=== PATIENT | male | born 1955 | race African-American/Black ===

== ENCOUNTER 2016-06-08 18:08 | Emergency (ER) | payer OTHER ==
[~2016-06-08] VITALS: Ht 175.3 cm; Wt 89.0 kg
[~2016-06-08 18:08] MED LIST: BUPRENORPHINE HC8 MG SL; CLONIDINE HCL0.3 MG PO; FLOMAX0.4 MG PO; LO-DOSE ASPIRIN81 M2 PO; METHADONE HCL40 MG PO; NITROSTAT0.4 MG SL; NORVASC5 MG PO; SERTRALINE HCL100 MG PO; WELLBUTRIN75 MG PO; XANAX0.5 MG PO
[2016-06-08 20:05] LABS: BASOPHIL COUNT 0.1 K/uL (0-0.1); EOSINOPHIL (%) 0.9 % (0-5); EOSINOPHIL COUNT 0.1 K/uL (0-0.3); HEMATOCRIT 39.3 % (38.0-50.0); IMMATURE GRANULOCYTE (%) 0.1 % (0.0-0.7); IMMATURE GRANULOCYTE COUNT 0.1 K/uL; LYMPHOCYTE COUNT 2.2 K/uL (1.0-2.8); MCH 30.5 PG (29.0-34.0); MCHC 34.4 G/DL (30.0-36.0); MCV 88.7 FL (86-99); MEAN PLAT.VOLUME 10.6 uM^3 (9.0-12.4); MONOCYTE (%) 9.1 % (3-12); MONOCYTE COUNT 0.6 K/uL (0-0.8); NEUTROPHIL COUNT 3.8 K/uL (1.8-6.4); PLATELET COUNT 254 K/uL (156-360); RBC DIS.WIDTH-CV 14.1 % (11.8-14.6); RBC DIS.WIDTH-SD 44.8 % (39-53); RED BLOOD COUNT 4.43 M/uL (4.00-5.50); WHITE BLOOD COUNT 6.7 K/uL (4.1-10.2)
[2016-06-08 20:17] LABS: D-DIMER ELISA 0.19 mg/L FEU (< 0.57)
[2016-06-08 20:20] LABS: CHLORIDE 106 mEq/L (99-109); POTASSIUM 3.9 mEq/L (3.7-5.4); SODIUM 140 mEq/L (136-147)
[2016-06-08 20:22] LABS: GLUCOSE 98 mg/dL (70-99)
[2016-06-08 20:23] LABS: ANION GAP 13 MEQ/L (2-14)
[2016-06-08 20:24] LABS: TOTAL BILIRUBIN 0.4 mg/dL (0.0-1.0)
[2016-06-08 20:25] LABS: ALKALINE PHOSPHATASE 67 IU/L (3-129)
[2016-06-08 20:26] LABS: GFR ESTIMATE (CALCULATED) > 59 mL/min/
[2016-06-08 20:27] LABS: UREA NITROGEN (BUN) 11 mg/dL (9-23)
[2016-06-08 20:29] LABS: LIPASE 16 U/L (1.0-51.0)
[2016-06-08 20:49] LABS: TROP-I INTERPRETATION NEGATIVE; TROPONIN-I < 0.01 ng/mL (0.0-0.30)
[2016-06-08] MEDS ORDERED: PRILOSEC OTC20 MG PO (22:15)
[2016-06-08] MEDS ORDERED: PERCOCET 5/31 TABLET PO (22:15)
[2016-06-08 22:35] VITALS: BP 124/76
== END 2016-06-08 23:05 | disposition home or self-care (01) ==
LOC: EME 18:08
PROVIDERS: Emergency Medicine
DX: K80.20 Calculus of gallbladder without cholecystitis without obstruction (principal); R07.9 Chest pain, unspecified; G89.29 Other chronic pain; Z79.891 Long term (current) use of opiate analgesic; F17.200 Nicotine dependence, unspecified, uncomplicated; Z71.6 Tobacco abuse counseling
CPT/HCPCS: 71010; 76705; 80053; 83690; 84484; 85025; 85379; 93005; 99281; 99285; J1170; J2405

== ENCOUNTER 2016-06-16 01:29 | Inpatient (IN) | payer OTHER ==
[~2016-06-16] VITALS: Ht 175.3 cm; Wt 89.0 kg
[~2016-06-16 01:29] MED LIST changes: +PERCOCET 5/31 TABLET PO; +PRILOSEC OTC20 MG PO
[2016-06-16 02:42] LABS: CHLORIDE 108 mEq/L (99-109); SODIUM 138 mEq/L (136-147)
[2016-06-16 02:44] LABS: GLUCOSE 83 mg/dL (70-99)
[2016-06-16 02:45] LABS: ANION GAP 15 MEQ/L (2-14)
[2016-06-16 02:47] LABS: SERUM ETHYL ALCOHOL 136 mg/dL
[2016-06-16 02:48] LABS: GFR ESTIMATE (CALCULATED) > 59 mL/min/
[2016-06-16 02:49] LABS: UREA NITROGEN (BUN) 13 mg/dL (9-23)
[2016-06-16 03:15] LABS: HEMATOCRIT 37.1 % (38.0-50.0); MCH 30.6 PG (29.0-34.0); MCHC 34.2 G/DL (30.0-36.0); MCV 89.4 FL (86-99); MEAN PLAT.VOLUME 10.9 uM^3 (9.0-12.4); PLATELET COUNT 213 K/uL (156-360); RBC DIS.WIDTH-CV 13.6 % (11.8-14.6); RBC DIS.WIDTH-SD 43.6 % (39-53); RED BLOOD COUNT 4.15 M/uL (4.00-5.50); WHITE BLOOD COUNT 8.2 K/uL (4.1-10.2)
[2016-06-16 05:13] VITALS: BP 132/85
[2016-06-16 07:56] VITALS: BP 139/78
[2016-06-16 15:43] VITALS: BP 103/56
[2016-06-17 07:58] VITALS: BP 124/73
[2016-06-17 15:36] VITALS: BP 120/61
[2016-06-18 07:36] VITALS: BP 115/68
[2016-06-18 16:01] VITALS: BP 114/69
[2016-06-18 19:57] VITALS: BP 112/62
[2016-06-19 07:44] VITALS: BP 113/60
[2016-06-19 13:07] LABS: ADD MIUA? NO; BILIRUBIN NEGATIVE; BLOOD NEGATIVE; COLOR YELLOW ((YELLOW)); GLUCOSE (STRIP) NEGATIVE; KETONES NEGATIVE; LEUKOCYTES NEGATIVE; NITRITE NEGATIVE; PH, URINE 6.5 (5-8); PROTEIN (STRIP) NEGATIVE; SPECIFIC GRAVITY 1.007 (1.000-1.030)
[2016-06-19 13:11] LABS: EOSINOPHIL (%) 11.2 % (0-5); EOSINOPHIL COUNT 0.6 K/uL (0-0.3); IMMATURE GRANULOCYTE COUNT 0.5 K/uL; LYMPHOCYTE COUNT 1.8 K/uL (1.0-2.8); MCH 30.7 PG (29.0-34.0); MCHC 33.7 G/DL (30.0-36.0); MCV 91.1 FL (86-99); MONOCYTE (%) 8.1 % (3-12); MONOCYTE COUNT 0.4 K/uL (0-0.8); NEUTROPHIL (%) 44.3 % (45-76); NEUTROPHIL COUNT 2.3 K/uL (1.8-6.4); RBC DIS.WIDTH-CV 13.4 % (11.8-14.6); RBC DIS.WIDTH-SD 43.9 % (39-53)
[2016-06-19 13:14] LABS: WHITE BLOOD COUNT 5.2 K/uL (4.1-10.2)
[2016-06-19 13:40] LABS: PLAT.SUFFICIENCY ADEQUATE; PLATELET COUNT UNABLE TO REPORT K/uL (156-360); USER ID SDF
[2016-06-19 13:48] LABS: ANION GAP 13 MEQ/L (2-14); CHLORIDE 102 MEQ/L (99-109); POTASSIUM 5.5 MEQ/L (3.7-5.4); SAMPLE HEMOLYSIS CHECK 1; SAMPLE ICTERIC CHECK 0; SAMPLE LIPEMIA CHECK 0; SODIUM 135 MEQ/L (136-147); TOTAL BILIRUBIN 1.1 MG/DL (0.0-1.0)
[2016-06-19 13:54] LABS: ALKALINE PHOSPHATASE 337 IU/L (3-129); GFR ESTIMATE (CALCULATED) > 59 mL/min/; GLUCOSE 96 mg/dL (70-99); LIPASE 30 U/L (1.0-51.0); UREA NITROGEN (BUN) 15 mg/dL (9-23)
[2016-06-19 16:09] VITALS: BP 120/68
[2016-06-20 07:56] VITALS: BP 145/83
[2016-06-20 10:08] LABS: ALKALINE PHOSPHATASE 392 IU/L (3-129); ANION GAP 7 MEQ/L (2-14); CHLORIDE 102 MEQ/L (99-109); GFR ESTIMATE (CALCULATED) > 59 mL/min/; GLUCOSE 134 mg/dL (70-99); SAMPLE HEMOLYSIS CHECK 0; SAMPLE ICTERIC CHECK 0; SAMPLE LIPEMIA CHECK 0; SODIUM 133 MEQ/L (136-147); UREA NITROGEN (BUN) 13 mg/dL (9-23)
[2016-06-20 10:12] LABS: POTASSIUM 4.2 MEQ/L (3.7-5.4); TOTAL BILIRUBIN 1.6 MG/DL (0.0-1.0)
[2016-06-20 15:39] VITALS: BP 134/72
[2016-06-20 17:50] LABS: AMPHETAMINES QUANT VALUE 0 NG/ML; BARBITUATES QUANT VALUE 0 NG/ML; BENZODIAZEPINES QUANT VALUE 0 NG/ML; BENZODIAZEPINES, URINE SCREEN Negative (200 ng/mL); OPIATES QUANTITATIVE VALUE 0 NG/ML; PHENCYCLIDINE QUANT VALUE 0 NG/ML
[2016-06-21 08:06] VITALS: BP 135/68
[2016-06-21 12:59] LABS: HEMATOCRIT 39.7 % (38.0-50.0); MCHC 33.5 G/DL (30.0-36.0); MCV 89.4 FL (86-99); RBC DIS.WIDTH-CV 13.4 % (11.8-14.6); RBC DIS.WIDTH-SD 43.6 % (39-53); RED BLOOD COUNT 4.44 M/uL (4.00-5.50); WHITE BLOOD COUNT 4.9 K/uL (4.1-10.2)
[2016-06-21 13:04] LABS: MEAN PLAT.VOLUME 11.7 uM^3 (9.0-12.4); PLATELET COUNT 233 K/uL (156-360)
[2016-06-21 13:31] LABS: ALKALINE PHOSPHATASE 477 IU/L (3-129); ANION GAP 8 MEQ/L (2-14); CHLORIDE 101 MEQ/L (99-109); GFR ESTIMATE (CALCULATED) > 59 mL/min/; POTASSIUM 4.6 MEQ/L (3.7-5.4); SAMPLE HEMOLYSIS CHECK 0; SAMPLE ICTERIC CHECK 1; SAMPLE LIPEMIA CHECK 0; SODIUM 136 MEQ/L (136-147); UREA NITROGEN (BUN) 11 mg/dL (9-23)
[2016-06-21 13:34] LABS: GLUCOSE 94 mg/dL (70-99)
[2016-06-22] MEDS ORDERED: OMEPRAZOLE20 MG PO (22:25)
[2016-06-22] MEDS ORDERED: WELLBUTRIN100 MG PO (22:26)
== END 2016-06-21 13:29 | disposition left against medical advice (07) | DRG 881 ==
LOC: EME 01:29 → EDOF 03:55 → 1WEST 03:55
PROVIDERS: Emergency Medicine; Internal Medicine; Surgery
DX: F32.9 Major depressive disorder, single episode, unspecified (principal); K81.0 Acute cholecystitis; R45.851 Suicidal ideations; F10.129 Alcohol abuse with intoxication, unspecified; F41.9 Anxiety disorder, unspecified; R45.850 Homicidal ideations; F19.10 Other psychoactive substance abuse, uncomplicated
CPT/HCPCS: 74177; 80048; 80053; 81003; 83690; 85025; 85027; 90839; 93005; 97150 GO; 97167 GO; 99281; 99284; G0480; J7030; J7042; Q0177

== ENCOUNTER 2016-06-22 19:03 | Inpatient (IN) | payer OTHER ==
[~2016-06-22] VITALS: Ht 175.3 cm; Wt 90.5 kg
[2016-06-22 19:51] LABS: ADD MIUA? YES; BILIRUBIN SMALL; BLOOD NEGATIVE; GLUCOSE (STRIP) NEGATIVE; KETONES NEGATIVE; LEUKOCYTES TRACE; NITRITE NEGATIVE; PROTEIN (STRIP) NEGATIVE; SPECIFIC GRAVITY 1.027 (1.000-1.030)
[2016-06-22 19:52] LABS: COLOR AMBER ((YELLOW))
[2016-06-22 20:08] LABS: HEMATOCRIT 38.5 % (38.0-50.0); MCH 30.3 PG (29.0-34.0); MCHC 34.3 G/DL (30.0-36.0); MCV 88.5 FL (86-99); RBC DIS.WIDTH-CV 13.5 % (11.8-14.6); RED BLOOD COUNT 4.35 M/uL (4.00-5.50)
[2016-06-22 20:15] LABS: CHLORIDE 108 mEq/L (99-109); POTASSIUM 4.1 mEq/L (3.7-5.4); SODIUM 142 mEq/L (136-147)
[2016-06-22 20:17] LABS: GLUCOSE 93 mg/dL (70-99)
[2016-06-22 20:19] LABS: ANION GAP 13 MEQ/L (2-14)
[2016-06-22 20:21] LABS: ALKALINE PHOSPHATASE 432 IU/L (3-129); GFR ESTIMATE (CALCULATED) > 59 mL/min/
[2016-06-22 20:22] LABS: UREA NITROGEN (BUN) 18 mg/dL (9-23); WHITE BLOOD COUNT 6.4 K/uL (4.1-10.2)
[2016-06-22 20:39] LABS: EPITHELIAL CELLS NONE SEEN; RED BLOOD CELLS 0-5 /HPF (0-5); WHITE BLOOD CELLS 0-5 /HPF (0-5)
[2016-06-22 20:40] LABS: BACTERIA RARE; CASTS NONE SEEN /LPF; CRYSTALS NONE SEEN; MUCUS RARE; UCUL ADDED? NO
[2016-06-22 20:53] LABS: HEMATOLOGY COMMENT 1 SMEAR COMPATIBLE
[2016-06-22 21:01] LABS: PLATELET COUNT 148 K/uL (156-360)
[2016-06-22] MEDS ORDERED: OMEPRAZOLE20 MG PO (22:25)
[2016-06-22] MEDS ORDERED: WELLBUTRIN100 MG PO (22:26)
[2016-06-23 00:15] VITALS: BP 117/72
[2016-06-23 05:27] LABS: AMPHETAMINES QUANT VALUE 0 NG/ML; BARBITUATES QUANT VALUE 0 NG/ML; BENZODIAZEPINES QUANT VALUE 0 NG/ML; BENZODIAZEPINES, URINE SCREEN Negative (200 ng/mL); OPIATES QUANTITATIVE VALUE 0 NG/ML; PHENCYCLIDINE QUANT VALUE 0 NG/ML
[2016-06-23 06:15] LABS: HEMATOCRIT 36.2 % (38.0-50.0); MCH 30.1 PG (29.0-34.0); MCHC 33.1 G/DL (30.0-36.0); MCV 90.7 FL (86-99); RBC DIS.WIDTH-CV 13.7 % (11.8-14.6); RBC DIS.WIDTH-SD 45.5 % (39-53); RED BLOOD COUNT 3.99 M/uL (4.00-5.50); WHITE BLOOD COUNT 5.3 K/uL (4.1-10.2)
[2016-06-23 06:21] VITALS: BP 170/79
[2016-06-23 06:38] LABS: MEAN PLAT.VOLUME 11.5 uM^3 (9.0-12.4)
[2016-06-23 06:45] LABS: PLATELET COUNT 219 K/uL (156-360)
[2016-06-23 07:11] LABS: ALKALINE PHOSPHATASE 388 IU/L (3-129); ANION GAP 6 MEQ/L (2-14); CHLORIDE 108 MEQ/L (99-109); GFR ESTIMATE (CALCULATED) > 59 mL/min/; GLUCOSE 97 mg/dL (70-99); SAMPLE HEMOLYSIS CHECK 0; SAMPLE ICTERIC CHECK 0; SAMPLE LIPEMIA CHECK 0; SODIUM 139 MEQ/L (136-147); UREA NITROGEN (BUN) 15 mg/dL (9-23)
[2016-06-23 07:19] LABS: TOTAL BILIRUBIN 3.1 MG/DL (0.0-1.0)
[2016-06-23 08:38] VITALS: BP 142/84
[2016-06-23 20:05] VITALS: BP 174/92
[2016-06-23 23:46] VITALS: BP 188/105
[2016-06-24 03:46] VITALS: BP 181/96
[2016-06-24 06:37] LABS: HEMATOCRIT 38.6 % (38.0-50.0); MCH 31.3 PG (29.0-34.0); MCHC 35.2 G/DL (30.0-36.0); MCV 88.9 FL (86-99); MEAN PLAT.VOLUME 12.4 uM^3 (9.0-12.4); PLATELET COUNT 242 K/uL (156-360); RBC DIS.WIDTH-CV 13.3 % (11.8-14.6); RBC DIS.WIDTH-SD 43.2 % (39-53); RED BLOOD COUNT 4.34 M/uL (4.00-5.50)
[2016-06-24 06:38] LABS: WHITE BLOOD COUNT 7.4 K/uL (4.1-10.2)
[2016-06-24 07:13] LABS: ALKALINE PHOSPHATASE 406 IU/L (3-129); ANION GAP 7 MEQ/L (2-14); CHLORIDE 102 MEQ/L (99-109); GFR ESTIMATE (CALCULATED) > 59 mL/min/; LIPASE 2008 U/L (1.0-51.0); POTASSIUM 3.9 MEQ/L (3.7-5.4); SAMPLE HEMOLYSIS CHECK 0; SAMPLE ICTERIC CHECK 0; SAMPLE LIPEMIA CHECK 0; UREA NITROGEN (BUN) 10 mg/dL (9-23)
[2016-06-24 07:17] LABS: GLUCOSE 172 mg/dL (70-99); SODIUM 132 MEQ/L (136-147); TOTAL BILIRUBIN 1.9 MG/DL (0.0-1.0)
[2016-06-24 08:09] VITALS: BP 164/98
[2016-06-24 10:25] VITALS: BP 159/92
[2016-06-24 17:00] VITALS: BP 132/78
[2016-06-24 20:00] VITALS: BP 146/61
[2016-06-25 00:09] VITALS: BP 157/86
[2016-06-25 07:27] LABS: HEMATOCRIT 40.8 % (38.0-50.0); MCH 30.3 PG (29.0-34.0); MCHC 33.8 G/DL (30.0-36.0); MCV 89.7 FL (86-99); RBC DIS.WIDTH-CV 13.5 % (11.8-14.6); RBC DIS.WIDTH-SD 44.3 % (39-53); RED BLOOD COUNT 4.55 M/uL (4.00-5.50)
[2016-06-25 07:33] VITALS: BP 141/86
[2016-06-25 07:44] LABS: WHITE BLOOD COUNT 10.6 K/uL (4.1-10.2)
[2016-06-25 07:55] LABS: ALKALINE PHOSPHATASE 343 IU/L (3-129); ANION GAP 9 MEQ/L (2-14); CHLORIDE 103 MEQ/L (99-109); GFR ESTIMATE (CALCULATED) > 59 mL/min/; GLUCOSE 105 mg/dL (70-99); LIPASE 371 U/L (1.0-51.0); POTASSIUM 4.2 MEQ/L (3.7-5.4); SAMPLE HEMOLYSIS CHECK 0; SAMPLE ICTERIC CHECK 0; SAMPLE LIPEMIA CHECK 0; SODIUM 134 MEQ/L (136-147); TOTAL BILIRUBIN 1.3 MG/DL (0.0-1.0); UREA NITROGEN (BUN) 8 mg/dL (9-23)
[2016-06-25 08:13] LABS: PLATELET COUNT UNABLE TO REPORT K/uL (156-360)
[2016-06-25 17:22] VITALS: BP 134/80
[2016-06-25 20:08] VITALS: BP 125/82
[2016-06-26 00:31] VITALS: BP 120/74
[2016-06-26 07:50] VITALS: BP 148/86
[2016-06-26 11:58] LABS: HEMATOCRIT 38.5 % (38.0-50.0); MCH 29.5 PG (29.0-34.0); MCHC 33.5 G/DL (30.0-36.0); MCV 87.9 FL (86-99); RBC DIS.WIDTH-CV 13.2 % (11.8-14.6); RBC DIS.WIDTH-SD 42.5 % (39-53); RED BLOOD COUNT 4.38 M/uL (4.00-5.50); WHITE BLOOD COUNT 8.2 K/uL (4.1-10.2)
[2016-06-26 12:17] LABS: MEAN PLAT.VOLUME 11.9 uM^3 (9.0-12.4); PLATELET COUNT 251 K/uL (156-360)
[2016-06-26 14:54] LABS: ANION GAP 8 MEQ/L (2-14); CHLORIDE 102 MEQ/L (99-109); SAMPLE HEMOLYSIS CHECK 0; SAMPLE ICTERIC CHECK 1; SAMPLE LIPEMIA CHECK 0; SODIUM 134 MEQ/L (136-147)
[2016-06-26 14:56] LABS: TOTAL BILIRUBIN 3.8 MG/DL (0.0-1.0)
[2016-06-26 14:59] LABS: ALKALINE PHOSPHATASE 420 IU/L (3-129); GFR ESTIMATE (CALCULATED) > 59 mL/min/; GLUCOSE 85 mg/dL (70-99); LIPASE 76 U/L (1.0-51.0); UREA NITROGEN (BUN) 7 mg/dL (9-23)
[2016-06-26 15:58] VITALS: BP 132/76
[2016-06-26 23:25] VITALS: BP 131/76
[2016-06-27 05:57] LABS: HEMATOCRIT 38.3 % (38.0-50.0); MCH 31.2 PG (29.0-34.0); MCHC 35.2 G/DL (30.0-36.0); MCV 88.5 FL (86-99); MEAN PLAT.VOLUME 12.4 uM^3 (9.0-12.4); PLATELET COUNT 231 K/uL (156-360); RBC DIS.WIDTH-CV 13.2 % (11.8-14.6); RBC DIS.WIDTH-SD 42.7 % (39-53); RED BLOOD COUNT 4.33 M/uL (4.00-5.50); WHITE BLOOD COUNT 6.3 K/uL (4.1-10.2)
[2016-06-27 06:26] LABS: ALKALINE PHOSPHATASE 438 IU/L (3-129); ANION GAP 12 MEQ/L (2-14); CHLORIDE 101 MEQ/L (99-109); GFR ESTIMATE (CALCULATED) > 59 mL/min/; GLUCOSE 92 mg/dL (70-99); LIPASE 44 U/L (1.0-51.0); SAMPLE HEMOLYSIS CHECK 0; SAMPLE ICTERIC CHECK 1; SAMPLE LIPEMIA CHECK 0; SODIUM 137 MEQ/L (136-147); TOTAL BILIRUBIN 4.6 MG/DL (0.0-1.0); UREA NITROGEN (BUN) 7 mg/dL (9-23)
[2016-06-27 07:48] VITALS: BP 145/86
[2016-06-27 11:30] VITALS: BP 162/84
[2016-06-28 00:07] VITALS: BP 161/87
[2016-06-28 05:51] LABS: HEMATOCRIT 39.6 % (38.0-50.0); MCH 29.6 PG (29.0-34.0); MCHC 33.8 G/DL (30.0-36.0); MCV 87.6 FL (86-99); MEAN PLAT.VOLUME 12.4 uM^3 (9.0-12.4); PLATELET COUNT 299 K/uL (156-360); RBC DIS.WIDTH-CV 13.2 % (11.8-14.6); RED BLOOD COUNT 4.52 M/uL (4.00-5.50); WHITE BLOOD COUNT 8.4 K/uL (4.1-10.2)
[2016-06-28 06:24] LABS: ALKALINE PHOSPHATASE 430 IU/L (3-129); ANION GAP 7 MEQ/L (2-14); CHLORIDE 100 MEQ/L (99-109); GFR ESTIMATE (CALCULATED) > 59 mL/min/; LIPASE 28 U/L (1.0-51.0); SAMPLE HEMOLYSIS CHECK 0; SAMPLE ICTERIC CHECK 0; SAMPLE LIPEMIA CHECK 0; SODIUM 132 MEQ/L (136-147); UREA NITROGEN (BUN) 8 mg/dL (9-23)
[2016-06-28 06:26] LABS: GLUCOSE 164 mg/dL (70-99); POTASSIUM 4.9 MEQ/L (3.7-5.4); TOTAL BILIRUBIN 2.1 MG/DL (0.0-1.0)
[2016-06-28 07:27] VITALS: BP 150/80
[2016-06-28 16:04] VITALS: BP 137/78
[2016-06-28 20:40] VITALS: BP 135/74
[2016-06-28 23:47] VITALS: BP 169/85
[2016-06-29 05:14] VITALS: BP 161/87
[2016-06-29 07:45] LABS: HEMATOCRIT 36.3 % (38.0-50.0); MCH 30.7 PG (29.0-34.0); MCHC 34.4 G/DL (30.0-36.0); MCV 89.2 FL (86-99); MEAN PLAT.VOLUME 12.4 uM^3 (9.0-12.4); PLATELET COUNT 303 K/uL (156-360); RBC DIS.WIDTH-CV 13.5 % (11.8-14.6); RBC DIS.WIDTH-SD 43.5 % (39-53); RED BLOOD COUNT 4.07 M/uL (4.00-5.50); WHITE BLOOD COUNT 11.1 K/uL (4.1-10.2)
[2016-06-29 07:59] LABS: ALKALINE PHOSPHATASE 324 IU/L (3-129); ANION GAP 8 MEQ/L (2-14); CHLORIDE 101 MEQ/L (99-109); GFR ESTIMATE (CALCULATED) > 59 mL/min/; GLUCOSE 127 mg/dL (70-99); POTASSIUM 4.2 MEQ/L (3.7-5.4); SAMPLE HEMOLYSIS CHECK 0; SAMPLE ICTERIC CHECK 0; SAMPLE LIPEMIA CHECK 0; SODIUM 134 MEQ/L (136-147); UREA NITROGEN (BUN) 11 mg/dL (9-23)
[2016-06-29 08:08] LABS: TOTAL BILIRUBIN 1.4 MG/DL (0.0-1.0)
[2016-06-29 08:47] VITALS: BP 148/75
[2016-06-29 15:56] VITALS: BP 136/80
[2016-06-30 00:31] VITALS: BP 156/98
[2016-06-30 06:09] LABS: HEMATOCRIT 36.3 % (38.0-50.0); MCH 31.1 PG (29.0-34.0); MCHC 34.4 G/DL (30.0-36.0); MCV 90.3 FL (86-99); MEAN PLAT.VOLUME 12.2 uM^3 (9.0-12.4); PLATELET COUNT 301 K/uL (156-360); RBC DIS.WIDTH-CV 13.6 % (11.8-14.6); RBC DIS.WIDTH-SD 44.6 % (39-53); RED BLOOD COUNT 4.02 M/uL (4.00-5.50); WHITE BLOOD COUNT 8.9 K/uL (4.1-10.2)
[2016-06-30 06:34] LABS: ALKALINE PHOSPHATASE 279 IU/L (3-129); ANION GAP 6 MEQ/L (2-14); CHLORIDE 102 MEQ/L (99-109); GFR ESTIMATE (CALCULATED) > 59 mL/min/; GLUCOSE 99 mg/dL (70-99); POTASSIUM 4.2 MEQ/L (3.7-5.4); SAMPLE HEMOLYSIS CHECK 0; SAMPLE ICTERIC CHECK 0; SAMPLE LIPEMIA CHECK 0; SODIUM 137 MEQ/L (136-147); TOTAL BILIRUBIN 1.2 MG/DL (0.0-1.0); UREA NITROGEN (BUN) 9 mg/dL (9-23)
[2016-06-30 07:23] VITALS: BP 143/71
[2016-06-30 20:03] VITALS: BP 145/81
[2016-07-01 02:32] VITALS: BP 135/73
[2016-07-01 06:22] LABS: HEMATOCRIT 40.5 % (38.0-50.0); MCH 30.6 PG (29.0-34.0); MCHC 34.1 G/DL (30.0-36.0); MCV 89.8 FL (86-99); MEAN PLAT.VOLUME 12.2 uM^3 (9.0-12.4); PLATELET COUNT 294 K/uL (156-360); RBC DIS.WIDTH-CV 13.5 % (11.8-14.6); RBC DIS.WIDTH-SD 44.5 % (39-53); RED BLOOD COUNT 4.51 M/uL (4.00-5.50)
[2016-07-01 06:23] LABS: WHITE BLOOD COUNT 12.5 K/uL (4.1-10.2)
[2016-07-01 06:26] LABS: ALKALINE PHOSPHATASE 287 IU/L (3-129); ANION GAP 12 MEQ/L (2-14); CHLORIDE 99 MEQ/L (99-109); GFR ESTIMATE (CALCULATED) > 59 mL/min/; SAMPLE HEMOLYSIS CHECK 0; SAMPLE ICTERIC CHECK 0; SAMPLE LIPEMIA CHECK 0; SODIUM 135 MEQ/L (136-147); TOTAL BILIRUBIN 1.3 MG/DL (0.0-1.0); UREA NITROGEN (BUN) 9 mg/dL (9-23)
[2016-07-01 06:27] LABS: GLUCOSE 153 mg/dL (70-99); POTASSIUM 5.1 MEQ/L (3.7-5.4)
[2016-07-01 08:22] VITALS: BP 116/64
[2016-07-01 16:09] VITALS: BP 135/76
[2016-07-02] VITALS: BP 140/84
[2016-07-02 05:25] LABS: HEMATOCRIT 36.6 % (38.0-50.0); MCH 30.6 PG (29.0-34.0); MCHC 34.2 G/DL (30.0-36.0); MCV 89.5 FL (86-99); MEAN PLAT.VOLUME 12.1 uM^3 (9.0-12.4); PLATELET COUNT 292 K/uL (156-360); RBC DIS.WIDTH-CV 13.5 % (11.8-14.6); RED BLOOD COUNT 4.09 M/uL (4.00-5.50); WHITE BLOOD COUNT 13.1 K/uL (4.1-10.2)
[2016-07-02 06:12] LABS: ALKALINE PHOSPHATASE 213 IU/L (3-129); ANION GAP 9 MEQ/L (2-14); CHLORIDE 100 MEQ/L (99-109); GFR ESTIMATE (CALCULATED) > 59 mL/min/; GLUCOSE 86 mg/dL (70-99); POTASSIUM 4.6 MEQ/L (3.7-5.4); SAMPLE HEMOLYSIS CHECK 0; SAMPLE ICTERIC CHECK 0; SAMPLE LIPEMIA CHECK 0; SODIUM 133 MEQ/L (136-147); TOTAL BILIRUBIN 1.2 MG/DL (0.0-1.0); UREA NITROGEN (BUN) 12 mg/dL (9-23)
[2016-07-02 08:15] VITALS: BP 134/80
[2016-07-02 13:09] VITALS: BP 125/70
[2016-07-02 17:08] VITALS: BP 119/63
[2016-07-02 23:30] VITALS: BP 118/71
[2016-07-03 05:37] LABS: HEMATOCRIT 39.7 % (38.0-50.0); MCH 30.9 PG (29.0-34.0); MCHC 34.3 G/DL (30.0-36.0); MCV 90.2 FL (86-99); MEAN PLAT.VOLUME 12.1 uM^3 (9.0-12.4); PLATELET COUNT 309 K/uL (156-360); RBC DIS.WIDTH-CV 13.6 % (11.8-14.6); RBC DIS.WIDTH-SD 44.6 % (39-53); WHITE BLOOD COUNT 11.3 K/uL (4.1-10.2)
[2016-07-03 06:04] LABS: ALKALINE PHOSPHATASE 225 IU/L (3-129); ANION GAP 7 MEQ/L (2-14); CHLORIDE 99 MEQ/L (99-109); GFR ESTIMATE (CALCULATED) > 59 mL/min/; GLUCOSE 107 mg/dL (70-99); POTASSIUM 4.8 MEQ/L (3.7-5.4); SAMPLE HEMOLYSIS CHECK 0; SAMPLE ICTERIC CHECK 0; SAMPLE LIPEMIA CHECK 0; SODIUM 134 MEQ/L (136-147); TOTAL BILIRUBIN 1.2 MG/DL (0.0-1.0); UREA NITROGEN (BUN) 10 mg/dL (9-23)
[2016-07-03 07:33] VITALS: BP 123/72
[2016-07-03 16:00] VITALS: BP 121/65
[2016-07-04 01:30] VITALS: BP 111/66
[2016-07-04 07:25] VITALS: BP 113/62
[2016-07-04 16:04] VITALS: BP 99/57
[2016-07-04 23:55] VITALS: BP 140/68
[2016-07-05 06:12] LABS: HEMATOCRIT 35.4 % (38.0-50.0); MCH 29.7 PG (29.0-34.0); MCHC 33.1 G/DL (30.0-36.0); MCV 89.8 FL (86-99); MEAN PLAT.VOLUME 11.7 uM^3 (9.0-12.4); PLATELET COUNT 363 K/uL (156-360); RBC DIS.WIDTH-CV 13.3 % (11.8-14.6); RBC DIS.WIDTH-SD 43.8 % (39-53); RED BLOOD COUNT 3.94 M/uL (4.00-5.50); WHITE BLOOD COUNT 8.7 K/uL (4.1-10.2)
[2016-07-05 06:44] LABS: ALKALINE PHOSPHATASE 194 IU/L (3-129); ANION GAP 6 MEQ/L (2-14); CHLORIDE 98 MEQ/L (99-109); GFR ESTIMATE (CALCULATED) > 59 mL/min/; GLUCOSE 92 mg/dL (70-99); POTASSIUM 4.8 MEQ/L (3.7-5.4); SAMPLE HEMOLYSIS CHECK 0; SAMPLE ICTERIC CHECK 0; SAMPLE LIPEMIA CHECK 0; SODIUM 131 MEQ/L (136-147); UREA NITROGEN (BUN) 16 mg/dL (9-23)
[2016-07-05 06:48] LABS: TOTAL BILIRUBIN 0.9 MG/DL (0.0-1.0)
[2016-07-05 07:45] VITALS: BP 106/56
[2016-07-05 10:18] VITALS: BP 104/64
[2016-07-05 11:40] VITALS: BP 126/67
[2016-07-05 11:48] VITALS: BP 94/55
[2016-07-05 16:30] VITALS: BP 105/63
[2016-07-05 20:00] VITALS: BP 93/63
[2016-07-06] VITALS: BP 104/55
[2016-07-06 04:00] VITALS: BP 93/57
[2016-07-06 07:47] VITALS: BP 101/57
[2016-07-06 17:22] VITALS: BP 111/60
[2016-07-07 00:16] VITALS: BP 125/78
[2016-07-07 08:20] VITALS: BP 101/63
[2016-07-07] MEDS ORDERED: TAMSULOSIN HCL0.4 MG PO (11:50)
[2016-07-07] MEDS ORDERED: METOCLOPRAMIDE10 MG PO (11:50)
[2016-07-07] MEDS ORDERED: CIPROFLOXACIN500 M1 PO (11:50)
[2016-07-07] MEDS ORDERED: WELLBUTRIN75 MG PO (13:45)
[2016-07-07] MEDS ORDERED: OXYCODONE HCL10 MG PO (15:42)
== END 2016-07-07 16:25 | DRG 414 ==
LOC: EME 19:03 → EDOF 22:06 → 3EAST 22:06
PROVIDERS: Surgery
DX: K80.00 Calculus of gallbladder with acute cholecystitis without obstruction (principal); K75.0 Abscess of liver; K46.9 Unspecified abdominal hernia without obstruction or gangrene; B19.20 Unspecified viral hepatitis C without hepatic coma; I10 Essential (primary) hypertension; N40.1 Benign prostatic hyperplasia with lower urinary tract symptoms; R33.9 Retention of urine, unspecified; F11.10 Opioid abuse, uncomplicated; F14.10 Cocaine abuse, uncomplicated; F12.10 Cannabis abuse, uncomplicated; F10.10 Alcohol abuse, uncomplicated; F19.10 Other psychoactive substance abuse, uncomplicated; F31.9 Bipolar disorder, unspecified; F17.210 Nicotine dependence, cigarettes, uncomplicated; F41.9 Anxiety disorder, unspecified; G89.29 Other chronic pain; Z91.14 Patient's other noncompliance with medication regimen
CPT/HCPCS: 74181; 74330; 76937; 80053; 81003; 83690; 85027; 86850; 86900; 86901; 87070; 87075; 87077; 87081; 87186; 87205; 88108; 88304; 88305; 88307; 94799; 99281; 99285; C1757; C1769; C1894; C2625; J0295; J0330; J0696; J0744; J1100; J1170; J1644; J2250; J2270; J2405; J2710; J3010; J7030; J7042; J7050; J7120

== ENCOUNTER → 2016-08-04 | Outpatient (CLI) | payer OTHER ==
[~2016-08-04] VITALS: Ht 175.3 cm; Wt 89.4 kg
[~2016-08-04] MED LIST changes: +BISACODYL5 MG PO; +BUPROPION HCL75 MG PO; +CATAPRES0.3 MG PO; +CIPROFLOXACIN500 M1 PO; +COLACE100 MG PO; +DAILY VALUE1 EACH PO; +DILAUDID2 MG PO; +METOCLOPRAMIDE10 MG PO; +MILK OF MAGNESI10 ML PO; +MIRALAX17 GM PO; +OMEPRAZOLE20 MG PO; +OXAYDO5 MG PO; +OXYCODONE HCL10 MG PO; +REGLAN10 MG PO; +TAMSULOSIN HCL0.4 MG PO; +TYLENOL REGULA325 MG PO; +WELLBUTRIN100 MG PO
== END ==
LOC: AMB 12:57
PROC: 0FCC8ZZ Extirpation of Matter from Ampulla of Vater, Via Natural or Artificial Opening Endoscopic (ICD-10-PCS; principal; 2016-08-04)
DX: Z46.89 Encounter for fitting and adjustment of other specified devices (principal); K21.9 Gastro-esophageal reflux disease without esophagitis; B19.20 Unspecified viral hepatitis C without hepatic coma; M19.90 Unspecified osteoarthritis, unspecified site; I10 Essential (primary) hypertension; F17.200 Nicotine dependence, unspecified, uncomplicated; Z79.891 Long term (current) use of opiate analgesic
CPT/HCPCS: 74330; 87081; C1757; C1769; J0330; J0360; J2405; J3010

== ENCOUNTER 2016-10-11 21:21 | Observation (INO) | payer OTHER ==
[~2016-10-11] VITALS: Ht 175.3 cm; Wt 91.5 kg
[2016-10-11 21:59] LABS: EOSINOPHIL (%) 0.7 % (0-5); EOSINOPHIL COUNT 0.1 K/uL (0-0.3); HEMATOCRIT 48.7 % (38.0-50.0); IMMATURE GRANULOCYTE (%) 0.1 % (0.0-0.7); INSTRUMENT ABS NEUTROPHIL CT 3.5 K/uL; LYMPHOCYTE COUNT 3.4 K/uL (1.0-2.8); MCH 29.9 PG (29.0-34.0); MCHC 33.3 G/DL (30.0-36.0); MEAN PLAT.VOLUME 10.7 uM^3 (9.0-12.4); MONOCYTE COUNT 0.6 K/uL (0-0.8); NEUTROPHIL (%) 46.3 % (45-76); NEUTROPHIL COUNT 3.5 K/uL (1.8-6.4); PLATELET COUNT 252 K/uL (156-360); RBC DIS.WIDTH-CV 14.6 % (11.8-14.6); RBC DIS.WIDTH-SD 48.3 % (39-53); RED BLOOD COUNT 5.41 M/uL (4.00-5.50); WHITE BLOOD COUNT 7.6 K/uL (4.1-10.2)
[2016-10-11 22:08] LABS: CHLORIDE 103 mEq/L (99-109); POTASSIUM 3.9 mEq/L (3.7-5.4); SODIUM 141 mEq/L (136-147)
[2016-10-11 22:10] LABS: GLUCOSE 97 mg/dL (70-99)
[2016-10-11 22:12] LABS: ANION GAP 15 MEQ/L (2-14); TOTAL BILIRUBIN 0.5 mg/dL (0.0-1.0)
[2016-10-11 22:14] LABS: ALKALINE PHOSPHATASE 61 IU/L (3-129); GFR ESTIMATE (CALCULATED) > 59 mL/min/
[2016-10-11 22:15] LABS: UREA NITROGEN (BUN) 22 mg/dL (9-23)
[2016-10-11 22:16] LABS: DIRECT BILIRUBIN 0.2 mg/dL (0.0-0.3)
[2016-10-11 22:17] LABS: LIPASE 25 U/L (1.0-51.0)
[2016-10-11 22:20] LABS: TROP-I INTERPRETATION NEGATIVE; TROPONIN-I 0.03 ng/mL (0.0-0.30)
[2016-10-12] VITALS (7 sets, daily range): BP systolic 100–119; BP diastolic 57–69
[2016-10-12 01:19] LABS: CARBON DIOXIDE (BICARBONATE) 27.3 MEQ/L (20-31)
[2016-10-12 01:34] LABS: SERUM ETHYL ALCOHOL < 10 mg/dL
[2016-10-12 01:37] LABS: ADD MIUA? YES; BILIRUBIN SMALL; BLOOD NEGATIVE; COLOR AMBER ((YELLOW)); GLUCOSE (STRIP) NEGATIVE; KETONES NEGATIVE; LEUKOCYTES NEGATIVE; NITRITE NEGATIVE; PROTEIN (STRIP) 100; SPECIFIC GRAVITY 1.031 (1.000-1.030)
[2016-10-12 01:38] LABS: MAGNESIUM 1.8 mg/dL (1.3-2.7)
[2016-10-12 01:40] LABS: TROP-I INTERPRETATION NEGATIVE; TROPONIN-I 0.03 ng/mL (0.0-0.30)
[2016-10-12 01:49] LABS: BACTERIA RARE /HPF; EPITHELIAL CELLS RARE /HPF; GRANULAR CASTS 0-5 /LPF; HYALINE CASTS TNTC /LPF; MUCUS 2+ /LPF; UCUL ADDED? NO; WHITE BLOOD CELLS 0-5 /HPF (0-5)
[2016-10-12 03:27] LABS: AMPHETAMINE NEGATIVE (500 ng/mL); BARBITURATES NEGATIVE (200 ng/mL); BENZODIAZEPINES PRESUMPTIVE POSITIVE (150 ng/mL); COCAINE PRESUMPTIVE POSITIVE (150 ng/mL); METHADONE PRESUMPTIVE POSITIVE (200 ng/mL); METHAMPHETAMINE NEGATIVE (500 ng/mL); OPIATES (MORPHINE) PRESUMPTIVE POSITIVE (100 ng/mL); OXYCODONE NEGATIVE (100 ng/mL); PHENCYCLIDINE NEGATIVE (25 ng/mL); PROPOXYPHENE NEGATIVE (300 ng/mL); THC CANNABINOIDS PRESUMPTIVE POSITIVE (50 ng/mL); TRICYCLIC ANTIDEPRESSANTS NEGATIVE (300 ng/mL)
[2016-10-12 03:28] LABS: ADD MEDTOX COMMENT Y; INTERNAL CONTROLS VALID? YES
[2016-10-12 03:56] LABS: BENZODIAZEPINES QUANT VALUE 0 NG/ML; OPIATES QUANTITATIVE VALUE 0 NG/ML
[2016-10-12 04:01] LABS: BENZODIAZEPINES, URINE SCREEN Negative (200 ng/mL)
[2016-10-12 07:05] LABS: TROP-I INTERPRETATION NEGATIVE; TROPONIN-I 0.04 ng/mL (0.0-0.30)
[2016-10-12 07:09] LABS: HDL CHOLESTEROL 38 MG/DL (Desirable>=40); LDL CHOLESTEROL 57 mg/dL (Desirable<100); NON-HDL CHOLESTEROL 69 mg/dL (Desirable<160); TOTAL CHOLESTEROL 107 mg/dL (Desirable<200); TRIGLYCERIDES 61 MG/DL (Normal: <150)
[2016-10-12 08:16] LABS: HEMATOCRIT 39.3 % (38.0-50.0); MCH 29.6 PG (29.0-34.0); MCHC 32.1 G/DL (30.0-36.0); MCV 92.3 FL (86-99); MEAN PLAT.VOLUME 11.3 uM^3 (9.0-12.4); PLATELET COUNT 200 K/uL (156-360); RBC DIS.WIDTH-CV 15.1 % (11.8-14.6); RBC DIS.WIDTH-SD 50.9 % (39-53); WHITE BLOOD COUNT 7.1 K/uL (4.1-10.2)
[2016-10-12 08:18] LABS: RED BLOOD COUNT 4.26 M/uL (4.00-5.50)
[2016-10-12 09:06] LABS: ALKALINE PHOSPHATASE 48 IU/L (3-129); ANION GAP 13 MEQ/L (2-14); CHLORIDE 106 MEQ/L (99-109); GFR ESTIMATE (CALCULATED) > 59 mL/min/; GLUCOSE 101 mg/dL (70-99); SODIUM 140 MEQ/L (136-147); TOTAL BILIRUBIN 0.5 MG/DL (0.0-1.0); UREA NITROGEN (BUN) 21 mg/dL (9-23)
[2016-10-12 10:59] LABS: TROP-I INTERPRETATION NEGATIVE; TROPONIN-I 0.04 ng/mL (0.0-0.30)
[2016-10-13 04:00] VITALS: BP 95/45
[2016-10-13 09:10] VITALS: BP 83/51
[2016-10-13 11:50] VITALS: BP 108/60
[2016-10-13] MEDS ORDERED: THIAMINE HCL100 MG PO (13:19)
[2016-10-13] MEDS ORDERED: BUPROPION XL150 MG PO (13:19)
[2016-10-13] MEDS ORDERED: ASPIR-LOW81 MG PO (13:19)
[2016-10-13] MEDS ORDERED: FOLIC ACID1 MG PO (13:19)
[2016-10-13] MEDS ORDERED: CHLORDIAZEPOXID25 MG PO (13:19)
[2016-10-14] MEDS ORDERED: ENDOCET 5-3251 EACH PO (12:10)
== END 2016-10-13 17:12 | disposition home or self-care (01) ==
LOC: EME 21:21 → 4EAST 10-12 01:06 → EDOF 10-12 01:06 → 4EAST 10-12 02:02
PROVIDERS: Emergency Medicine; Physician Assistant; Physician Assistant Medical
DX: R07.89 Other chest pain (principal); F10.20 Alcohol dependence, uncomplicated; F11.20 Opioid dependence, uncomplicated; F14.20 Cocaine dependence, uncomplicated; F12.90 Cannabis use, unspecified, uncomplicated; I10 Essential (primary) hypertension; R01.1 Cardiac murmur, unspecified; N40.1 Benign prostatic hyperplasia with lower urinary tract symptoms; R33.9 Retention of urine, unspecified; G89.29 Other chronic pain; K73.9 Chronic hepatitis, unspecified; D64.9 Anemia, unspecified; F17.200 Nicotine dependence, unspecified, uncomplicated; R94.31 Abnormal electrocardiogram [ECG] [EKG]; R45.850 Homicidal ideations; F32.9 Major depressive disorder, single episode, unspecified; K81.1 Chronic cholecystitis; R45.851 Suicidal ideations; I95.9 Hypotension, unspecified
CPT/HCPCS: 71010; 80048; 80053; 80061; 80076; 80306 90; 81003; 82803; 83690; 83735; 84484; 84999; 85025; 85027; 93005; 99281; 99285; G0378; G0480; J2060; J3411; J3475; J7030

== ENCOUNTER 2016-10-13 21:01 | Observation (INO) | payer OTHER ==
[~2016-10-13] VITALS: Ht 175.3 cm; Wt 97.2 kg
[~2016-10-13 21:01] MED LIST changes: +ASPIR-LOW81 MG PO; +BUPROPION XL150 MG PO; +CHLORDIAZEPOXID25 MG PO; +FOLIC ACID1 MG PO; +THIAMINE HCL100 MG PO
[2016-10-13 22:06] LABS: EOSINOPHIL (%) 1.5 % (0-5); EOSINOPHIL COUNT 0.1 K/uL (0-0.3); HEMATOCRIT 37.4 % (38.0-50.0); IMMATURE GRANULOCYTE (%) 0.2 % (0.0-0.7); INSTRUMENT ABS NEUTROPHIL CT 2.4 K/uL; LYMPHOCYTE COUNT 2.9 K/uL (1.0-2.8); MCH 30.4 PG (29.0-34.0); MCHC 32.9 G/DL (30.0-36.0); MCV 92.6 FL (86-99); MEAN PLAT.VOLUME 11.1 uM^3 (9.0-12.4); MONOCYTE (%) 8.2 % (3-12); MONOCYTE COUNT 0.5 K/uL (0-0.8); NEUTROPHIL (%) 40.4 % (45-76); NEUTROPHIL COUNT 2.4 K/uL (1.8-6.4); PLATELET COUNT 190 K/uL (156-360); RBC DIS.WIDTH-CV 14.7 % (11.8-14.6); RBC DIS.WIDTH-SD 50.3 % (39-53); RED BLOOD COUNT 4.04 M/uL (4.00-5.50); WHITE BLOOD COUNT 5.8 K/uL (4.1-10.2)
[2016-10-13 22:18] LABS: CHLORIDE 105 mEq/L (99-109); POTASSIUM 4.2 mEq/L (3.7-5.4); SODIUM 138 mEq/L (136-147)
[2016-10-13 22:20] LABS: GLUCOSE 97 mg/dL (70-99)
[2016-10-13 22:21] LABS: ANION GAP 8 MEQ/L (2-14)
[2016-10-13 22:22] LABS: TOTAL BILIRUBIN 0.4 mg/dL (0.0-1.0)
[2016-10-13 22:23] LABS: ALKALINE PHOSPHATASE 51 IU/L (3-129)
[2016-10-13 22:24] LABS: GFR ESTIMATE (CALCULATED) > 59 mL/min/
[2016-10-13 22:25] LABS: UREA NITROGEN (BUN) 14 mg/dL (9-23)
[2016-10-13 22:27] LABS: LIPASE 19 U/L (1.0-51.0)
[2016-10-13 23:30] LABS: BILIRUBIN NEGATIVE; BLOOD NEGATIVE; COLOR YELLOW ((YELLOW)); GLUCOSE (STRIP) NEGATIVE; KETONES NEGATIVE; LEUKOCYTES NEGATIVE; NITRITE NEGATIVE; PROTEIN (STRIP) NEGATIVE; SPECIFIC GRAVITY 1.013 (1.000-1.030)
[2016-10-13 23:32] LABS: ADD MIUA? NO; UCUL ADDED? NO
[2016-10-14 07:41] VITALS: BP 110/72
[2016-10-14 11:50] VITALS: BP 113/71
[2016-10-14] MEDS ORDERED: ENDOCET 5-3251 EACH PO (12:10)
== END 2016-10-14 13:50 | disposition home or self-care (01) ==
LOC: EME → EDBD 21:01 → EME 21:01 → EDOF 10-14 05:49 → 5WEST 10-14 07:26
PROVIDERS: Emergency Medicine
DX: T80.89XA Other complications following infusion, transfusion and therapeutic injection, initial encounter (principal); F17.200 Nicotine dependence, unspecified, uncomplicated; M79.89 Other specified soft tissue disorders; M79.601 Pain in right arm; R10.9 Unspecified abdominal pain; R11.2 Nausea with vomiting, unspecified; F10.20 Alcohol dependence, uncomplicated; F19.20 Other psychoactive substance dependence, uncomplicated; I10 Essential (primary) hypertension; R01.1 Cardiac murmur, unspecified; N40.0 Benign prostatic hyperplasia without lower urinary tract symptoms; F20.9 Schizophrenia, unspecified
CPT/HCPCS: 74177; 80053; 81003; 83690; 85025; 99281; 99285; G0378; J2270

== ENCOUNTER 2016-10-28 21:15 | Emergency (ER) | payer OTHER ==
[~2016-10-28] VITALS: Ht 175.3 cm; Wt 87.2 kg
[~2016-10-28 21:15] MED LIST changes: +ENDOCET 5-3251 EACH PO
[2016-10-28 22:23] LABS: ADD MIUA? YES; BILIRUBIN NEGATIVE; BLOOD SMALL; COLOR STRAW ((YELLOW)); GLUCOSE (STRIP) NEGATIVE; KETONES NEGATIVE; LEUKOCYTES NEGATIVE; NITRITE NEGATIVE; PROTEIN (STRIP) NEGATIVE; SPECIFIC GRAVITY 1.006 (1.000-1.030)
[2016-10-28 22:32] LABS: BACTERIA RARE /HPF; COCAINE PRESUMPTIVE POSITIVE (150 ng/mL); EPITHELIAL CELLS NONE SEEN /HPF; METHAMPHETAMINE NEGATIVE (500 ng/mL); MUCUS NONE SEEN /LPF; PHENCYCLIDINE NEGATIVE (25 ng/mL); RED BLOOD CELLS 0-5 /HPF (0-5); THC CANNABINOIDS NEGATIVE (50 ng/mL); WHITE BLOOD CELLS 0-5 /HPF (0-5)
[2016-10-28 22:33] LABS: ADD MEDTOX COMMENT Y; AMPHETAMINE NEGATIVE (500 ng/mL); BARBITURATES NEGATIVE (200 ng/mL); BENZODIAZEPINES PRESUMPTIVE POSITIVE (150 ng/mL); INTERNAL CONTROLS VALID? YES; METHADONE PRESUMPTIVE POSITIVE (200 ng/mL); OPIATES (MORPHINE) PRESUMPTIVE POSITIVE (100 ng/mL); OXYCODONE NEGATIVE (100 ng/mL); PROPOXYPHENE NEGATIVE (300 ng/mL); TRICYCLIC ANTIDEPRESSANTS NEGATIVE (300 ng/mL)
[2016-10-28 23:28] LABS: BENZODIAZEPINES, URINE SCREEN POSITIVE (200 ng/mL)
[2016-10-28 23:31] LABS: MCH 30.3 PG (29.0-34.0); MCHC 33.5 G/DL (30.0-36.0); MCV 90.5 FL (86-99); MEAN PLAT.VOLUME 10.5 uM^3 (9.0-12.4); PLATELET COUNT 213 K/uL (156-360); RBC DIS.WIDTH-CV 13.8 % (11.8-14.6); RBC DIS.WIDTH-SD 46.7 % (39-53); RED BLOOD COUNT 4.75 M/uL (4.00-5.50); WHITE BLOOD COUNT 4.7 K/uL (4.1-10.2)
[2016-10-28 23:34] LABS: CHLORIDE 104 mEq/L (99-109); POTASSIUM 3.4 mEq/L (3.7-5.4); SODIUM 140 mEq/L (136-147)
[2016-10-28 23:37] LABS: GLUCOSE 95 mg/dL (70-99)
[2016-10-28 23:38] LABS: ANION GAP 13 MEQ/L (2-14)
[2016-10-28 23:39] LABS: TOTAL BILIRUBIN 0.5 mg/dL (0.0-1.0)
[2016-10-28 23:40] LABS: ALKALINE PHOSPHATASE 64 IU/L (3-129); SERUM ETHYL ALCOHOL 77 mg/dL
[2016-10-28 23:41] LABS: GFR ESTIMATE (CALCULATED) > 59 mL/min/
[2016-10-28 23:42] LABS: UREA NITROGEN (BUN) 11 mg/dL (9-23)
[2016-10-29 00:22] VITALS: BP 160/96
== END 2016-10-29 00:40 | disposition home or self-care (01) ==
LOC: EME 21:15
PROVIDERS: Emergency Medicine
DX: F19.10 Other psychoactive substance abuse, uncomplicated (principal); F10.20 Alcohol dependence, uncomplicated; F32.9 Major depressive disorder, single episode, unspecified; I10 Essential (primary) hypertension; Z91.14 Patient's other noncompliance with medication regimen; Y90.3 Blood alcohol level of 60-79 mg/100 ml; F17.200 Nicotine dependence, unspecified, uncomplicated
CPT/HCPCS: 80053; 81003; 84999; 85027; 90839; 99281; 99285; G0480

== ENCOUNTER 2016-10-29 00:38 | Emergency (ER) | payer OTHER ==
[~2016-10-29] VITALS: Ht 182.9 cm; Wt 89.1 kg
[2016-10-29 05:31] VITALS: BP 129/85
== END 2016-10-29 05:45 | disposition home or self-care (01) ==
LOC: EME 00:38
DX: F32.9 Major depressive disorder, single episode, unspecified (principal); S50.812A Abrasion of left forearm, initial encounter; X78.1XXA Intentional self-harm by knife, initial encounter; F19.10 Other psychoactive substance abuse, uncomplicated; F10.10 Alcohol abuse, uncomplicated; I10 Essential (primary) hypertension; F17.200 Nicotine dependence, unspecified, uncomplicated
CPT/HCPCS: 90837; 99281; 99285

== ENCOUNTER 2016-10-30 22:40 | Emergency (ER) | payer OTHER ==
[~2016-10-30] VITALS: Ht 177.8 cm; Wt 95.0 kg
[2016-10-30 23:05] VITALS: BP 142/81
== END 2016-10-30 23:45 | disposition left against medical advice (07) ==
LOC: EME 22:40
DX: Z00.8 Encounter for other general examination (principal); Z53.21 Procedure and treatment not carried out due to patient leaving prior to being seen by health care provider

== ENCOUNTER 2016-11-03 17:36 | Inpatient (IN) | payer OTHER ==
[~2016-11-03] VITALS: Ht 175.3 cm; Wt 87.7 kg
[2016-11-03 18:09] LABS: MCH 30.8 PG (29.0-34.0); MCHC 33.9 G/DL (30.0-36.0); MCV 90.9 FL (86-99); MEAN PLAT.VOLUME 10.3 uM^3 (9.0-12.4); PLATELET COUNT 232 K/uL (156-360); RBC DIS.WIDTH-CV 13.8 % (11.8-14.6); RBC DIS.WIDTH-SD 46.3 % (39-53); RED BLOOD COUNT 5.06 M/uL (4.00-5.50)
[2016-11-03 18:11] LABS: WHITE BLOOD COUNT 6.7 K/uL (4.1-10.2)
[2016-11-04 00:56] VITALS: BP 118/78
[2016-11-04] MEDS ORDERED: CATAPRES0.3 MG PO (05:31)
[2016-11-04] MEDS ORDERED: WELLBUTRIN75 MG PO (05:33)
[2016-11-04] MEDS ORDERED: FLOMAX0.4 MG PO (05:34)
[2016-11-04] MEDS ORDERED: KLONOPIN0.5 M1 PO (05:35)
[2016-11-04] MEDS ORDERED: METHADONE 22 MG/1 ML PO (05:38)
[2016-11-04 07:19] VITALS: BP 131/64
[2016-11-04 15:26] VITALS: BP 98/60
[2016-11-05 07:33] VITALS: BP 117/65
[2016-11-05 15:38] VITALS: BP 111/60
[2016-11-06 07:24] VITALS: BP 119/68
[2016-11-06 16:08] VITALS: BP 110/57
[2016-11-07 07:36] VITALS: BP 108/65
[2016-11-07 15:14] VITALS: BP 96/53
[2016-11-08 07:28] VITALS: BP 164/79
[2016-11-08 07:35] VITALS: BP 130/68
[2016-11-08] MEDS ORDERED: ATORVASTATIN CA40 MG PO (09:33)
[2016-11-08] MEDS ORDERED: QUETIAPINE FUM100 MG PO (09:33)
[2016-11-08] MEDS ORDERED: ESCITALOPRAM OX10 MG PO (09:33)
[2016-11-08] MEDS ORDERED: FLOMAX0.4 MG PO (09:33)
== END 2016-11-08 14:14 | disposition other institution (70) | DRG 881 ==
LOC: EME 17:36 → EDOF 21:15 → 1WEST 21:15
DX: F32.9 Major depressive disorder, single episode, unspecified (principal); R45.851 Suicidal ideations; F10.229 Alcohol dependence with intoxication, unspecified; Y90.2 Blood alcohol level of 40-59 mg/100 ml; F11.10 Opioid abuse, uncomplicated; F12.10 Cannabis abuse, uncomplicated; F13.10 Sedative, hypnotic or anxiolytic abuse, uncomplicated; F14.10 Cocaine abuse, uncomplicated; F22 Delusional disorders; F17.200 Nicotine dependence, unspecified, uncomplicated
CPT/HCPCS: 85027; 90839; 97150 GO; 97165 GO; 97530 GO; 99281; 99285; G0480; Q0177